=== PATIENT | female | born 1955 | race Two or more races ===

== ENCOUNTER 2023-02-06 09:47 | Outpatient (CLI) | payer OTHER | END 2023-02-06 10:00 | disposition home or self-care (01) | LOC: RX STUDY 09:47 | PROVIDERS: ATTEND Internal Medicine Gastroenterology | DX: R10.84 Generalized abdominal pain (principal) ==

== ENCOUNTER 2023-02-08 07:31 | Outpatient (CLI) | payer OTHER | END 2023-02-08 07:32 | disposition home or self-care (01) | LOC: NUCLEAR 07:31 | DX: K31.84 Gastroparesis (principal) | CPT/HCPCS: 78264; A9541 ==